=== PATIENT | female | born 2000 | race Hispanic/Latino ===

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

== ENCOUNTER 2018-02-01 22:31 | Emergency (ER) | payer MEDICAID, OTHER ==
[2018-02-01 22:31] VITALS: BMI 24.3
[2018-02-01 22:40] VITALS: O2SAT 98
[2018-02-01] MEDS ORDERED: Sodium Chloride 0.9% 1,000 ML IV ONE (23:27)
--- NOTE | 2018-02-01 23:27 | C.PDOC ---
History Of Present Illness 17 year old female presents to the ER with a complaint of vomiting after eating rice and chicken today, associated with mild abdominal pain and diarrhea. Patient states she noticed some small streaks of blood in the vomit. Denies fever or chills. Time Seen by Provider: 02/01/18 23:27 Chief Complaint (Nursing): GI Problem History Per: Patient History/Exam Limitations: no limitations Onset/Duration Of Symptoms: Hrs Current Symptoms Are (Timing): Still Present Context: Food Severity: Moderate Pain Scale Rating Of: 4 Location Of Pain/Discomfort: Epigastric Radiation Of Pain To:: None Quality Of Discomfort: Unable To Describe Associated Symptoms: denies: Fever, Chills Exacerbating Factors: None Alleviating Factors: None Recent travel outside of the [place]: No Abnormal Vaginal Bleeding: No Past Medical History Reviewed: Historical Data, Nursing Documentation, Vital Signs Vital Signs: Last Vital Signs Temp 97.1 F L 02/02/18 00:56 Pulse 84 02/02/18 00:56 Resp 20 02/02/18 00:56 BP 109/66 02/02/18 00:56 Pulse Ox 98 02/02/18 00:56 - Medical History PMH: Denies: Bipolar Disorder, Bronchitis, Diabetes, Diverticulitis, Hepatitis, HIV Surgical History: Denies: Appendectomy, CABG, Carotid Endarterectomy, Cholecystectomy, Coronary Stent, Endoscopy, Pacemaker, Tonsillectomy - [facility] Procedures EXC LES SOFT TISSUE NEC (12/04/14) OTHER LOCAL DESTRUC SKIN (09/17/14) Family History: States: No Known Family Hx - Social History Hx Alcohol Use: No Hx Substance Use: No - Immunization History Hx Tetanus Toxoid Vaccination: No Hx Influenza Vaccination: No Hx Pneumococcal Vaccination: No Review Of Systems Constitutional: Negative for: Fever, Chills Respiratory: Negative for: Cough, Shortness of Breath Gastrointestinal: Positive for: Vomiting, Abdominal Pain, Diarrhea Genitourinary: Negative for: Dysuria, Hematuria Skin: Negative for: Rash Physical Exam - Physical Exam Appears: Non-toxic Skin: Warm, Dry Head: Normacephalic Oral Mucosa: Moist Throat: No Erythema, No Exudate, No Other (Bleeding or lesions) Chest: Symmetrical, No Tenderness Cardiovascular: Rhythm Regular Respiratory: No Rales, No Rhonchi, No Wheezing Gastrointestinal/Abdominal: Soft, Tenderness (Mild epigastric), No Guarding, No Rebound Back: No CVA Tenderness Neurological/Psych: Oriented x3 ED Course And Treatment - Laboratory Results Result Diagrams: 02/01/18 23:46 02/01/18 23:46 O2 Sat by Pulse Oximetry: 98 (Room air) Pulse Ox Interpretation: Normal Progress Note: Blood work and urinalysis ordered. Pepcid, zofran, and IV fluids administered. Disposition Counseled Patient/Family Regarding: Studies Performed, Diagnosis, Need For Followup, Rx Given - Disposition Referrals: Satish Irvin MD [Staff Provider] - Disposition: HOME/ ROUTINE Disposition Time: 23:27 Condition: FAIR Additional Instructions: Please return if symptoms recur Prescriptions: Ondansetron ODT [Zofran ODT] 1 odt PO BID PRN #6 odt PRN Reason: Nausea/Vomiting Instructions: Food Poisoning (DC), Nausea and Vomiting, Adult (DC) Forms: [employer] [facility] (Amharic) - Clinical Impression Clinical Impression: Nausea & vomiting, Food poisoning - Scribe Statement The provider has reviewed the documentation as recorded by the Scribcandida Mcnamara All medical record entries made by the Scribe were at my direction and personally dictated by me. I have reviewed the chart and agree that the record accurately reflects my personal performance of the history, physical exam, medical decision making, and the department course for this patient. I have also personally directed, reviewed, and agree with the discharge instructions and disposition.
[2018-02-01] MEDS ORDERED: Sodium Chloride 0.9% 1,000 ML ONE (23:35)
[2018-02-01 23:51] LABS: BASO # 0.1 K/uL (0.0-0.2); BASO % 0.5 % (0.0-2.0); EOS # 0.2 K/uL (0.0-0.7); EOS % 2.6 % (0.0-4.0); LYMPH % 32.3 % (20.0-40.0); MEAN CELL VOLUME 89.1 fL (81.0-99.0); MEAN CORPUSCULAR HEMOGLOBIN 30.5 pg (27.0-31.0); MEAN CORPUSCULAR HGB CONC 34.2 g/dL (33.0-37.0); MEAN PLATELET VOLUME 8.4 fL (7.2-11.7); MONO # 0.7 K/uL (0.0-0.8); MONO % 8.1 % (0.0-10.0); NEUT # 5.2 K/uL (1.8-7.0); NEUT % 56.5 % (50.0-75.0); RBC 4.25 Mil/uL (3.80-5.20); RED CELL DISTRIBUTION WIDTH 14.1 % (11.5-14.5); WHITE BLOOD COUNT 9.2 K/uL (4.8-10.8)
[2018-02-01 23:54] LABS: HCG,QUALITATIVE URINE NEGATIVE (NEGATIVE)
[2018-02-02 00:07] LABS: PROTHROMBIN TIME 11.3 SECONDS (9.7-12.2)
[2018-02-02 00:08] LABS: ALB/GLOB RATIO 1.5 (1.0-2.1); ALBUMIN 4.5 g/dL (3.5-5.0); ALT/SGPT 37 U/L (9-52); AST/SGOT 28 U/L (14-36); BLOOD UREA NITROGEN 12 mg/dL (7-17); CALCIUM 9.1 mg/dl (8.6-10.4); GFR AFRICAN-AMERICAN > 60; GFR NON-AFRICAN AMERICAN > 60; LIPASE 82 U/L (23-300)
[2018-02-02 00:18] LABS: SQUAMOUS EPITHIAL 5 /hpf (0-5); URINE BILIRUBIN NEGATIVE (NEGATIVE); URINE BLOOD 3+ (NEGATIVE); URINE CLARITY Hazy (Clear); URINE COLOR Yellow (YELLOW); URINE GLUCOSE (UA) NORMAL (Normal); URINE LEUKOCYTE ESTERASE 1+ Leu/uL (Negative); URINE PROTEIN 1+ mg/dL (NEGATIVE); URINE UROBILINOGEN NORMAL mg/dL (0.2-1.0)
[2018-02-02 00:57] VITALS: BP 109/66; PULSE 84; RESP 20; TEMP 97.1
== END 2018-02-02 00:57 | disposition home or self-care (01) ==
LOC: C.ER 22:31
DX: R11.2 Nausea with vomiting, unspecified (principal); T62.8X1A Toxic effect of other specified noxious substances eaten as food, accidental (unintentional), initial encounter; Y92.9 Unspecified place or not applicable
CPT/HCPCS: 80053; 81001; 83690; 84703; 85025; 85610; 85730; 96361; 96374; 96375; 99284; J2405; J7030

== ENCOUNTER 2018-02-17 03:35 | Emergency (ER) | payer OTHER ==
[2018-02-17 03:35] VITALS: BMI 24.3
--- NOTE | 2018-02-17 04:00 | C.PDOC ---
History Of Present Illness pt woke up from sleep feeling very anxious, having some palpitations. Denies any emotional issues, no drugs, no meds. Feels better now. ALso felt some tingling in her fingers, which has since resolved. Speaking in complete sentences. No f/c/n/v Time Seen by Provider: 02/17/18 04:00 Chief Complaint (Nursing): Chest Pain Past Medical History Reviewed: Historical Data, Nursing Documentation, Vital Signs Vital Signs: Last Vital Signs Temp 99 F 02/17/18 03:40 Pulse 111 H 02/17/18 03:40 Resp 20 02/17/18 03:40 BP 117/66 02/17/18 03:40 Pulse Ox 99 02/17/18 05:56 - Medical History PMH: Denies: Anemia, Anxiety, Arthritis, Asthma, Bipolar Disorder, Bronchitis, Cardia Arrhythmia, CHF, Colonic Polyps, COPD, Crohn's Disease, Hepatitis, HIV, HTN, Hypercholesterolemia, Kidney Stones, Mitral Valve Prolapse, Osteoporosis, Pancreatitis, Paranoia, Peripheral Edema, Pneumonia, Rheumatoid Arthritis Surgical History: Denies: Appendectomy, CABG, Carotid Endarterectomy, Cholecystectomy, Coronary Stent, Endoscopy, Pacemaker, Tonsillectomy - [facility] Procedures EXC LES SOFT TISSUE NEC (12/04/14) OTHER LOCAL DESTRUC SKIN (09/17/14) Family History: States: No Known Family Hx - Social History Hx Alcohol Use: No Hx Substance Use: No - Immunization History Hx Tetanus Toxoid Vaccination: No Hx Influenza Vaccination: No Hx Pneumococcal Vaccination: No Review Of Systems Constitutional: Negative for: Fever, Chills Cardiovascular: Negative for: Chest Pain Respiratory: Positive for: Shortness of Breath (hyperventilating) Gastrointestinal: Negative for: Nausea, Abdominal Pain Musculoskeletal: Negative for: Back Pain Skin: Negative for: Rash Neurological: Negative for: Weakness Psych: Positive for: Anxiety Physical Exam - Physical Exam Appears: Non-toxic, No Acute Distress Skin: Warm, Dry Head: Normacephalic Eye(s): bilateral: Normal Inspection Oral Mucosa: Moist Neck: Supple Chest: Symmetrical, Tenderness (reproducible) Cardiovascular: Rhythm Regular Respiratory: No Rales, No Rhonchi, No Wheezing Gastrointestinal/Abdominal: Soft, No Tenderness, No Distention Back: Normal Inspection Extremity: Normal ROM Extremity: Bilateral: Atraumatic Pulses: Left Dorsalis Pedis: Normal, Right Dorsalis Pedis: Normal Neurological/Psych: Oriented x3, Normal Speech, Normal Cognition Gait: Steady ED Course And Treatment - Laboratory Results Result Diagrams: 02/17/18 04:42 02/17/18 04:42 ECG: Interpreted By Me, Viewed By Me ECG Rhythm: Sinus Tachycardia (116), Nonspecific Changes O2 Sat by Pulse Oximetry: 99 Pulse Ox Interpretation: Normal Disposition Counseled Patient/Family Regarding: Studies Performed, Diagnosis - Disposition Disposition Time: 04:00 Condition: FAIR Forms: [employer] (Latvian) - Clinical Impression Clinical Impression: Anxiety, Chest discomfort Physician Patient Turnover Patient Signed Over To: Christian Dean DO Handoff Comments: pending cta, re-eval and disposition
[2018-02-17] MEDS ORDERED: Sodium Chloride 0.9% 1,000 ML IV ONE ×2 (04:24→05:11)
[2018-02-17 04:44] LABS: BASO % 0.2 % (0.0-2.0); EOS # 0.2 K/uL (0.0-0.7); EOS % 0.7 % (0.0-4.0); LYMPH # 3.2 K/uL (1.0-4.3); LYMPH % 12.6 % (20.0-40.0); MEAN CELL VOLUME 88.9 fL (81.0-99.0); MEAN CORPUSCULAR HEMOGLOBIN 29.7 pg (27.0-31.0); MEAN CORPUSCULAR HGB CONC 33.4 g/dL (33.0-37.0); MONO # 1.1 K/uL (0.0-0.8); MONO % 4.3 % (0.0-10.0); NEUT # 20.9 K/uL (1.8-7.0); NEUT % 82.2 % (50.0-75.0); RBC 4.71 Mil/uL (3.80-5.20); RED CELL DISTRIBUTION WIDTH 13.8 % (11.5-14.5)
[2018-02-17] MEDS ORDERED: Sodium Chloride 0.9% 1,000 ML ONE (04:44)
[2018-02-17 04:47] LABS: WHITE BLOOD COUNT 25.4 K/uL (4.8-10.8)
[2018-02-17 05:02] LABS: ALB/GLOB RATIO 1.3 (1.0-2.1); ALBUMIN 5.1 g/dL (3.5-5.0); ALT/SGPT 37 U/L (9-52); AST/SGOT 33 U/L (14-36); BLOOD UREA NITROGEN 11 mg/dL (7-17); CALCIUM 9.8 mg/dl (8.6-10.4); GFR AFRICAN-AMERICAN > 60; GFR NON-AFRICAN AMERICAN > 60
[2018-02-17 05:28] LABS: SQUAMOUS EPITHIAL < 1 /hpf (0-5); URINE BILIRUBIN NEGATIVE (NEGATIVE); URINE BLOOD NEGATIVE (NEGATIVE); URINE CLARITY Clear (Clear); URINE COLOR Colorless (YELLOW); URINE GLUCOSE (UA) NORMAL (Normal); URINE LEUKOCYTE ESTERASE NEG Leu/uL (Negative); URINE PROTEIN NEGATIVE (NEGATIVE); URINE UROBILINOGEN NORMAL mg/dL (0.2-1.0)
[2018-02-17] MEDS ORDERED: Piperacillin/Tazobact 3.375 gm 100 ML IVPB STA (06:46)
[2018-02-17] MEDS ORDERED: Piperacillin/Tazobact 3.375 gm 100 ML IVPB ONE (07:26)
[2018-02-17 07:33] VITALS: RESP 18
[2018-02-17] MEDS ORDERED: Iodixanol 320 MG/ML 100 ML BOTTLE IV ONE (08:06)
--- NOTE | 2018-02-17 09:19 | CT ---
Date of service: 02/17/2018 PROCEDURE: CT Chest with contrast (Pulmonary Angiogram) HISTORY: sob, tachy, cp COMPARISON: None available. TECHNIQUE: Axial computed tomography images were obtained of the chest in the pulmonary arterial phase of enhancement. Coronal and sagittal reformatted images were created and reviewed. Intravenous contrast dose: 100 mL Visipaque 320 Radiation dose: Total exam DLP = 295.41 mGy-cm. This CT exam was performed using one or more of the following dose reduction techniques: Automated exposure control, adjustment of the mA and/or kV according to patient size, and/or use of iterative reconstruction technique. FINDINGS: PULMONARY ARTERIES: Unremarkable. No pulmonary embolism. AORTA: No acute findings. No thoracic aortic aneurysm. LUNGS: There are small opacities seen at the lung bases likely represent atelectasis. Mild pulmonary vascular congestion is noted. PLEURAL SPACES: No evidence of significant pleural effusion. No evidence of pneumothorax. HEART: Heart is mildly enlarged. The main pulmonary artery is mildly enlarged. LYMPH NODES: No lymphadenopathy. BONES, CHEST WALL: Unremarkable. No fracture or destructive lesion OTHER FINDINGS: Unremarkable. IMPRESSION: No evidence of acute pulmonary embolus. Small opacities at the lung bases likely represent atelectasis. Mild pulmonary vascular congestion. Mild cardiomegaly.
[2018-02-17 09:43] LABS: BARBITURATES, UR NEGATIVE (NEGATIVE); BENZODIAZEPINES, UR NEGATIVE (NEGATIVE); OPIATES, UR NEGATIVE (NEGATIVE); PHENCYCLIDINE, UR NEGATIVE (NEGATIVE)
[2018-02-17 09:54] VITALS: BP 102/65; PULSE 94; TEMP 98; O2SAT 97
--- NOTE | 2018-02-18 23:11 | CARD ---
APPROVED REPORT Date of service: 02/17/2018 EKG Measurement Heart [id number] <Conclusion> Sinus tachycardia Possible Left atrial enlargement Borderline ECG
== END 2018-02-17 10:06 | disposition home or self-care (01) ==
LOC: C.ER 03:35
DX: R07.89 Other chest pain (principal); F41.9 Anxiety disorder, unspecified
CPT/HCPCS: 71275; 80053; 80324; 80345; 80346; 80349; 80353; 80358; 80361; 81001; 83690; 83992; 84443; 84703; 85025; 85378; 93005; 96361; 96365; 96375; 99285; C9113; J1885; J2543; J7030; Q9967

== ENCOUNTER 2018-09-02 18:53 | Emergency (ER) | payer OTHER ==
[2018-09-02 18:53] VITALS: BMI 24.3
[2018-09-02] MEDS ORDERED: Sodium Chloride 0.9% 1,000 ML IV ONE (19:30)
--- NOTE | 2018-09-02 19:30 | C.PDOC ---
History Of Present Illness Patient presents 2 months LMP 06/14/19, saw her OBGYN who said she could not see her fetus and sent her here. She reports lower abdominal discomfort. Denies vaginal bleeding, fever, chills, nausea, or vomiting. Time Seen by Provider: 09/02/18 19:30 Chief Complaint (Nursing): Female Genitourinary History Per: Patient History/Exam Limitations: no limitations Onset/Duration Of Symptoms: Days Current Symptoms Are (Timing): Still Present Severity: Moderate Pain Scale Rating Of: 4 Recent travel outside of the [place]: No Past Medical History Reviewed: Historical Data, Nursing Documentation, Vital Signs Vital Signs: Last Vital Signs Temp 98.2 F 09/02/18 18:57 Pulse 92 H 09/02/18 18:57 Resp 18 09/02/18 18:57 BP 137/81 09/02/18 18:57 Pulse Ox 100 09/02/18 18:57 - Medical History PMH: Denies: Anemia, Anxiety, Arthritis, Asthma, Bipolar Disorder, Bronchitis, Cardia Arrhythmia, CHF, Colonic Polyps, COPD, Crohn's Disease, Depression, Diabetes, Diverticulitis, Emphysema, Fractures, Gastritis, Gall Bladder Disease, Hepatitis, HIV, HTN, Hypercholesterolemia, Kidney Stones, Mitral Valve Prolapse, Osteoporosis, Pancreatitis, Paranoia, Peripheral Edema, Pneumonia, Post Traumatic Stress Disorder, Pulmonary Embolism, Chronic Kidney Disease, Rheumatoid Arthritis, Schizophrenia, Seizures, Sickle Cell Disease, Sexually Transmitted Disease, Sleep Apnea Surgical History: Denies: Appendectomy, CABG, Carotid Endarterectomy, Cholecystectomy, Coronary Stent, Endoscopy, Pacemaker, Tonsillectomy - [facility] Procedures EXC LES SOFT TISSUE NEC (12/04/14) OTHER LOCAL DESTRUC SKIN (09/17/14) Family History: States: No Known Family Hx - Social History Hx Alcohol Use: No Hx Substance Use: No - Immunization History Hx Tetanus Toxoid Vaccination: No Hx Influenza Vaccination: No Hx Pneumococcal Vaccination: No Review Of Systems Constitutional: Negative for: Fever, Chills Cardiovascular: Negative for: Chest Pain, Palpitations Respiratory: Negative for: Cough, Shortness of Breath Gastrointestinal: Positive for: Abdominal Pain. Negative for: Nausea, Vomiting Genitourinary: Negative for: Vaginal Bleeding Neurological: Negative for: Weakness, Numbness Physical Exam - Physical Exam Appears: Non-toxic Skin: Warm, Dry Head: Normacephalic Oral Mucosa: Moist Chest: Symmetrical, No Tenderness Cardiovascular: Rhythm Regular Respiratory: No Rales, No Rhonchi, No Wheezing Gastrointestinal/Abdominal: Soft, Tenderness (Mild suprapubic), No Guarding, No Rebound Back: No CVA Tenderness Neurological/Psych: Oriented x3 ED Course And Treatment - Laboratory Results Result Diagrams: 09/02/18 19:46 09/02/18 19:46 O2 Sat by Pulse Oximetry: 100 (Room air) Pulse Ox Interpretation: Normal Progress Note: Blood work and urinalysis ordered. IV fluids administered. Reevaluation Time: 20:54 Reassessment Condition: Improved Disposition Counseled Patient/Family Regarding: Studies Performed, Diagnosis - Disposition Referrals: [facility] [Outside] Disposition: HOME/ ROUTINE Disposition Time: 19:30 Condition: FAIR Forms: [facility] (Azeri), General Discharge Instructions - Clinical Impression Clinical Impression: Encounter for medical assessment - Scribe Statement The provider has reviewed the documentation as recorded by the Scribe Jet Mcnamara All medical record entries made by the Scribe were at my direction and personally dictated by me. I have reviewed the chart and agree that the record accurately reflects my personal performance of the history, physical exam, medical decision making, and the department course for this patient. I have also personally directed, reviewed, and agree with the discharge instructions and disposition.
[2018-09-02 19:51] LABS: BASO # 0.1 K/uL (0.0-0.2); BASO % 1.4 % (0.0-2.0); EOS # 0.2 K/uL (0.0-0.7); EOS % 2.1 % (0.0-4.0); LYMPH # 3.1 K/uL (1.0-4.3); LYMPH % 29.7 % (20.0-40.0); MEAN CELL VOLUME 90.4 fL (81.0-99.0); MEAN CORPUSCULAR HEMOGLOBIN 29.7 pg (27.0-31.0); MEAN CORPUSCULAR HGB CONC 32.9 g/dL (33.0-37.0); MEAN PLATELET VOLUME 8.1 fL (7.2-11.7); MONO # 0.5 K/uL (0.0-0.8); MONO % 5.1 % (0.0-10.0); NEUT # 6.5 K/uL (1.8-7.0); NEUT % 61.7 % (50.0-75.0); NRBC % 0.1 % (0.0-2.0); RBC 4.7 Mil/uL (3.80-5.20); RED CELL DISTRIBUTION WIDTH 14.3 % (11.5-14.5); WHITE BLOOD COUNT 10.5 K/uL (4.8-10.8)
[2018-09-02 19:52] LABS: HCG,QUALITATIVE URINE NEGATIVE (NEGATIVE)
[2018-09-02 19:55] LABS: SQUAMOUS EPITHIAL 10 /hpf (0-5); URINE BACTERIA RARE (<OCC); URINE BILIRUBIN NEGATIVE (NEGATIVE); URINE BLOOD NEGATIVE (NEGATIVE); URINE CLARITY Hazy (Clear); URINE COLOR Yellow (YELLOW); URINE GLUCOSE (UA) NORMAL (Normal); URINE LEUKOCYTE ESTERASE NEG Leu/uL (Negative); URINE PROTEIN NEGATIVE (NEGATIVE); URINE UROBILINOGEN NORMAL mg/dL (0.2-1.0)
[2018-09-02 20:04] LABS: ALB/GLOB RATIO 1.5 (1.0-2.1); ALBUMIN 5.1 g/dL (3.5-5.0); BLOOD UREA NITROGEN 14 mg/dL (7-17); CALCIUM 9.6 mg/dl (8.6-10.4); GFR NON-AFRICAN AMERICAN > 60
[2018-09-02 20:12] LABS: ALT/SGPT 18 U/L (9-52); AST/SGOT 40 U/L (14-36)
[2018-09-02 21:06] VITALS: BP 128/78; PULSE 89; RESP 17; TEMP 98.6; O2SAT 99
== END 2018-09-02 21:06 | disposition home or self-care (01) ==
LOC: C.ER 18:53
DX: Z00.00 Encounter for general adult medical examination without abnormal findings (principal)